=== PATIENT | female | born 1970 | race Caucasian/White ===

== ENCOUNTER 2017-05-24 09:32 | Emergency (ER) | END 2017-05-24 11:36 | disposition home or self-care (01) ==

== ENCOUNTER 2017-06-22 15:50 | Emergency (ER) | END 2017-06-22 21:12 | disposition home or self-care (01) ==

== ENCOUNTER 2018-09-03 10:19 | Emergency (ER) | payer OTHER ==
[~2018-09-03] VITALS: Wt 110.0 kg
[~2018-09-03 10:19] MED LIST: ASPI-817 PO; CLOP75TA19 PO; LEVO175T6 PO; MECL-77 PO; NAPR-688 PO; ONDA4TAB14 PO
[2018-09-03] MEDS ORDERED: ONDANSETRON 4 MG INJ IV STA (11:46)
[2018-09-03] MEDS ORDERED: SOD CHLORIDE 0.9% 1,000 ML IV STA (11:46)
[2018-09-03] MEDS ORDERED: FAMOTIDINE 20 MG TAB PO STA (11:46)
--- NOTE | 2018-09-03 11:51 | ERD ---
ER Documentation Chief Complaint Chief Complaint AP WITH CONSTIPATION X 5 DAYS HPI 47-year-old female, with history of morbid obesity, presents the emergency department, complaining of 5 days with progressive worsening of generalized abdominal pain, described as dull, deep, constant, 6/10, associated with nausea and constipation. Last bowel movement 5 days ago. The patient denies any history of abdominal surgery, no current fever, no chills, no urinary symptoms, no rashes. ROS All systems reviewed and are negative except as per history of present illness. Medications Home Meds Active Scripts Docusate Sodium* (Colace*) 100 Mg Capsule, 100 MG PO TID, #30 CAP Prov:ANDREEA LYON MD 09/03/18 Naproxen* (Naproxen*) 500 Mg Tablet, 500 MG PO BID PRN for PAIN, #20 TAB Prov:GABBY LUCIO DO 06/22/17 Ondansetron (Ondansetron Odt) 4 Mg Tab.rapdis, 4 MG PO Q6H PRN for NAUSEA AND/OR VOMITING, #9 TAB Prov:GABBY LUCIO DO 06/22/17 Meclizine Hcl* (Meclizine Hcl*) 25 Mg Tablet, 25 MG PO Q8H PRN for DIZZINESS, #23 TAB Prov:GABBY LUCIO DO 06/22/17 Reported Medications Clopidogrel Bisulfate* (Clopidogrel Bisulfate*) 75 Mg Tablet, 75 MG PO DAILY, #30 TAB 06/22/17 Aspirin* (Aspirin* EC) 81 Mg Tablet.dr, 81 MG PO DAILY, TAB 06/22/17 Levothyroxine Sodium* (Levothyroxine Sodium*) 175 Mcg Tablet, 175 MCG PO BEFORE BREAKFAST, #30 TAB 06/22/17 Allergies Allergies: Coded Allergies: No Known Allergy (Unverified , 06/22/17) PMhx/Soc Hx Alcohol Use: No Hx Substance Use: No Hx Tobacco Use: No Smoking Status: Never smoker FmHx Family History: diabetes; No coronary disease Physical Exam Vitals Vital Signs Date Temp Pulse Resp B/P (MAP) Pulse Ox O2 O2 Flow FiO2 Time Delivery Rate 09/03/18 97.7 69 18 134/63 96 Room Air 14:58 (86) 09/03/18 98.1 77 18 161/73 99 10:22 (102) Physical Exam Patient alert, oriented, mild distress due to pain, vital signs stable. HEAD: Normocephalic, atraumatic. EYES: PERRLA, EOMI, Sclera and conjunctiva appear normal. NOSE: Clear and patent nostrils. EARS: Canals clear, tympanic membranes WNL. MOUTH: normal lips and tongue, no oral lesions. THROAT: Normal oropharynx, no tonsillar exudates. NECK: Supple, No lymphadenopathy. Full ROM without pain or tenderness. HEART: RRR, no rubs, murmurs, clicks or gallops. LUNGS: Clear to auscultation. ABDOMEN: Soft, diffuse tenderness to deep palpation, difficult examination due to body habitus, no masses or hepatosplenomegaly. EXTREMITIES: No edema bilaterally. BACK: Full ROM, no deformity, normal back exam NEURO: Cranial nerves grossly intact, no motor or sensory deficit SKIN: No rashes, no petechia. Result Diagram: 09/03/18 1215 09/03/18 1215 Results 24 hrs Laboratory Tests Test 09/03/18 12:15 09/03/18 12:23 White Blood Count 8.5 10^3/ul Red Blood Count 4.55 10^6/ul Hemoglobin 9.6 g/dl Hematocrit 34.3 % Mean Corpuscular Volume 75.4 fl Mean Corpuscular Hemoglobin 21.1 pg Mean Corpuscular Hemoglobin Concent 28.0 g/dl Red Cell Distribution Width 18.5 % Platelet Count 281 10^3/UL Mean Platelet Volume 10.0 fl Immature Granulocytes % 0.500 % Neutrophils % 60.4 % Lymphocytes % 28.6 % Monocytes % 7.2 % Eosinophils % 2.1 % Basophils % 1.2 % Nucleated Red Blood Cells % 0.0 /100WBC Immature Granulocytes # 0.040 10^3/ul Neutrophils # 5.2 10^3/ul Lymphocytes # 2.4 10^3/ul Monocytes # 0.6 10^3/ul Eosinophils # 0.2 10^3/ul Basophils # 0.1 10^3/ul Nucleated Red Blood Cells # 0.0 10^3/ul Sodium Level 141 mmol/L Potassium Level 3.7 mmol/L Chloride Level 102 mmol/L Carbon Dioxide Level 32 mmol/L Anion Gap 7 Blood Urea Nitrogen 12 mg/dl Creatinine 0.66 mg/dl Est Glomerular Filtrat Rate mL/min > 60 mL/min Glucose Level 115 mg/dl Calcium Level 8.4 mg/dl Total Bilirubin 0.7 mg/dl Direct Bilirubin 0.00 mg/dl Indirect Bilirubin 0.7 mg/dl Aspartate Amino Transf (AST/SGOT) 23 IU/L Alanine Aminotransferase (ALT/SGPT) 28 IU/L Alkaline Phosphatase 125 IU/L Total Protein 8.2 g/dl Albumin 4.2 g/dl Globulin 4.00 g/dl Albumin/Globulin Ratio 1.05 Lipase 71 U/L Bedside Urine pH (LAB) 7.5 Bedside Urine Protein (LAB) 1+ Bedside Urine Glucose (UA) Negative Bedside Urine Ketones (LAB) Negative Bedside Urine Blood Trace-intact Bedside Urine Nitrite (LAB) Negative Bedside Urine Leukocyte Esterase (L 1+ POC Beta HCG, Qualitative NEGATIVE Current Medications Medications Dose Sig/Lakeisha Start Time Status Last (Trade) Ordered Route PRN Stop Time Admin Dose Reason Admin Sodium 1,000 ml @ Q1H STAT 09/03/18 DC 09/03/18 Chloride 1,000 mls/hr IV 11:46 12:06 09/03/18 12:45 Ondansetron 4 mg ONCE STAT 09/03/18 DC 09/03/18 HCl (Zofran IV 11:46 12:06 Inj) 09/03/18 11:50 Famotidine 20 mg ONCE STAT 09/03/18 DC 09/03/18 (Pepcid) PO 11:46 12:06 09/03/18 11:50 IV Flush 10 ml STK-MED 09/03/18 DC 09/03/18 (NS 10 ml) ONCE .ROUTE 13:16 13:33 09/03/18 13:17 Sodium 100 ml @ ud STK-MED 09/03/18 DC 09/03/18 Chloride ONCE .ROUTE 13:16 13:34 09/03/18 13:17 Iohexol 150 ml STK-MED 09/03/18 DC 09/03/18 (Omnipaque ONCE .ROUTE 13:17 13:34 300mg/ ml) 09/03/18 13:18 Patient: SHARON RING : 1970 Age: 47 Sex: F MR #: [id number] DOS: 09/03/18 1150 Ordering MD: ANDREEA LYON MD Location: [facility] Room/Bed: PROCEDURE: US Abdomen (right upper quadrant). CLINICAL INDICATION: History of cholelithiasis. TECHNIQUE: Multiple real-time longitudinal and transverse images of the right upper quadrant of the abdomen were acquired utilizing a curved array transducer. Images were reviewed on a high-resolution PACS workstation. COMPARISON: None FINDINGS: Limitation: Body habitus limits sensitivity of the exam. The liver is suboptimally visualized. No obvious mass or biliary tree dilatation seen.. There is normal hepatopedal flow within the main portal vein. The gallbladder is remarkable for multiple echogenic, shadowing calculi. The common bile duct measures 5.6 mm in maximal dimension. Pancreas is obscured by overlying bowel gas.. No free fluid is identified. The right kidney measures 11.8 cm in length. The kidney is suboptimally visualized. No obvious mass or hydronephrosis seen.. IMPRESSION: 1. Cholelithiasis without evidence of biliary tree dilatation. The study is limited by patient's body habitus. Patient: SHARON RING : 1970 Age: 47 Sex: F [id number] DOS: 09/03/18 1146 Ordering MD: ANDREEA LYON MD Location: [facility] Room/Bed: PROCEDURE: CT Abdomen and Pelvis with intravenous contrast. CLINICAL INDICATION: 5d w/ Abdominal Pain . TECHNIQUE: CT scan of the abdomen and pelvis with intravenous contrast was performed on a multi-detector high-resolution CT scanner. The patient was scanned following the uncomplicated intravenous administration of 100 cc of Omnipaque-300 contrast. Coronal and sagittal reformatted images were obtained from the axial source images. DICOM images are available. CTDIvol 23.81 mGy, and DLP 1429.83 mGy.cm. One or more of the following dose reduction techniques were used: - Automated exposure control. - Adjustment of the mA and/or kV according to patient size. - Use of iterative reconstruction technique. COMPARISON: CT 06/22/2017 FINDINGS: Lower thorax: Normal. Liver: Diffuse hypoattenuation of the liver suggestive of hepatic steatosis. Portal vein is patent. Biliary: Cholelithiasis. No intrahepatic or extrahepatic biliary dilatation. Pancreas: Normal. Spleen: Normal. Adrenal Glands: Normal. Urinary: Normal. Gastrointestinal: Normal. Lymph nodes: No enlarged abdominal or pelvic lymph nodes. Vascular: Normal. Peritoneum/mesentery: No free fluid or free air. Moderate fat containing periumbilical hernia. Ill-defined soft tissue density and stranding with a punctate calcification located in the right lower abdomen and pelvis adjacent to the right mesentery and uterus. Reproductive organs: There is a 9.1 x 11.0 x 7.9 cm (AP x TV x CC) lobulated mass in the pelvis and adnexa adjacent to the right anterior aspect of the uterus. Additional lobulations of the uterus suggestive of fibroids. Musculoskeletal: No suspicious osseous lesions. Mild degenerative changes of the thoracic spine. IMPRESSION: There is a 11.0 cm lobulated mass in the pelvis, which may represent a large pedunculated subserosal fibroid. A right adnexal mass cannot be totally excluded. Recommend correlation with pelvic ultrasound. Ill-defined soft tissue density and stranding with a punctate calcification in the right lower abdomen and pelvis adjacent to the right mesentery and pelvic mass. Findings may represent sequela of inflammation. However, neoplastic omental or lymphatic infiltration is not totally excluded. Correlate with prior imaging if available. Otherwise recommend attention on follow-up. Cholelithiasis. Moderate fat containing periumbilical hernia. Procedures/MDM Differential diagnosis include but not limited to: bowel Obstruction, ileus, fecal impaction. Low suspicion for acute abdomen. Physical examination and clinical presentation consistent most likely with constipation without evidence of impaction, incidentally, the patient was also found to have a right adnexal mass that requires follow-up outpatient, since there is no evidence of free fluid, bleeding or metastasis. During the ED course the patient remained stable, no new complaints. Treatment options, results and clinical impression discussed with the patient who agrees with management. The patient is stable to be treated outpatient and will be discharged home with a Rx for colace, some side effects of prescribed medications were reviewed. The patient was instructed to follow up with the primary care provider in the next 48h. If symptoms persist, worsen or new symptoms develop, then patient should return to the ED immediately. Instructions explained and given directly by me to the patient with acknowled gment and demonstrated understanding. Disclaimer: Inadvertent spelling and grammatical errors are likely due to EHR/dictation software use and do not reflect on the overall quality of patient care. Also, please note that the electronic time recorded on this note does not necessarily reflect the actual time of the patient encounter. Departure Diagnosis: Primary Impression: Constipation Additional Impression: Abdominal or pelvic swelling, mass, or lump, right lower quadrant Condition: Stable Additional Instructions: Thank you very much for allowing us to participate in your care. Your health and safety is our top priority at [facility]. The evaluation in the emergency department has been done to rule out an acute emergency, therefore, chronic conditions like malignancy or other diseases have not been evaluated; therefore, you need to follow up with a primary care provider in the next 48h. If symptoms persist, worsen or new symptoms develop, then patient should return to the ED immediately. Call your primary care doctor TOMORROW for an appointment during the next 2-4 days and bring all the information provided. Have prescriptions filled and follow precisely the directions on the label. If the symptoms get worse and your provider is unavailable, return to the Emergency Department immediately. ANDREEA LYON MD September 03, 2018 11:50
[2018-09-03] MEDS ORDERED: SOD CHLORIDE 0.9% 100 ML ONE (13:16)
[2018-09-03] MEDS ORDERED: IOHEXOL 300MG/ML 150 ML BTL ONE (13:17)
[2018-09-03] MEDS ORDERED: DOCU-144 PO (14:47)
[2018-09-03 14:58] VITALS: BP 134/63; PULSE 69; RESP 18
== END 2018-09-03 14:59 | disposition home or self-care (01) ==
LOC: FTE 10:19
DX: K59.00 Constipation, unspecified (principal); R19.00 Intra-abdominal and pelvic swelling, mass and lump, unspecified site; E66.01 Morbid (severe) obesity due to excess calories; Z79.01 Long term (current) use of anticoagulants; Z79.82 Long term (current) use of aspirin
CPT/HCPCS: 36415; 74177; 76705; 80053; 81003; 81025; 83690; 85025; 96361; 96374; J2405; J7030; Q9967; Z7502; Z7610